=== PATIENT | male | born 1980 | race Caucasian/White ===

== ENCOUNTER 2022-05-31 17:02 | Emergency (ER) | payer OTHER ==
[~2022-05-31] VITALS: Ht 185.4 cm; Wt 100.0 kg
[2022-05-31 17:39] VITALS: BP 160/101
== END 2022-05-31 21:24 | disposition home or self-care (01) ==
LOC: ER 17:05
DX: S51.811A Laceration without foreign body of right forearm, initial encounter (principal); F17.200 Nicotine dependence, unspecified, uncomplicated; W26.8XXA Contact with other sharp object(s), not elsewhere classified, initial encounter; Y93.89 Activity, other specified; Y92.89 Other specified places as the place of occurrence of the external cause; Y99.8 Other external cause status
CPT/HCPCS: 12002; 99282; J7030; A6258; A6449